=== PATIENT | female | born 1945 | race Caucasian/White ===

== ENCOUNTER → 2017-05-28 11:25 | Outpatient (CLI) | payer MEDICARE, OTHER, SELFPAY ==
[2017-05-28 14:54] LABS: Absolute Lymphocyte Count 2.18 X10^3/ul (0.83-4.51); Absolute Neutrophil Count 3.1 X10^3/uL (2.0-7.7); Basophil# 0.02 X10^3/uL; Basophil% 0.3 % (0-1); Eosinophil# 0.17 X10^3/uL; Eosinophils% 2.8 % (0-5); Hematocrit 42.4 % (37-47); Hemoglobin 14.2 g/dl (12.0-15.0); Lymphocyte # 2.18 X10^3/ul (4.0); Lymphocyte % 35.7 % (19-41); Mean Corp Hgb Conc 33.5 g/gl (32-36); Mean Corpuscular Hgb 28.3 pg (27.0-32.0); Mean Corpuscular Volume 84.5 fL (81-99); Mean Platelet Vol. 9.8 fl (6.2-12.0); Monocyte# 0.62 X10^3/uL; Monocyte% 10.1 % (0-10); Neutrophil % 50.8 % (47-70); Platelet Count 243 K/mm3 (150-450); RBC Distribution Width CV 12.5 % (11.6-14.6); RBC Distribution Width SD 38.2 fl (35.1-43.9); Red Blood Count 5.02 M/mm3 (4.2-5.4); White Blood Count 6.1 K/mm3 (4.4-11.0)
[2017-05-28 14:57] LABS: POSITIVE COUNT NO; POSITIVE DIFFERENTIAL NO; POSITIVE MORPHOLOGY NO
[2017-05-28 15:01] LABS: ALB/GLOB Ratio 0.9 RATIO (0.9-2.4); AST(SGOT) 15 U/L (15-37); Alanine Aminotransfer ALT/SGPT 29 U/L (13-56); Albumin, Serum 3.3 g/dL (3.2-5.0); Alkaline Phosphatase 54 U/L (45-117); Anion Gap 7 (5-15); BUN 13 mg/dL (7-18); BUN/Creat Ratio 16.7 RATIO (10-20); Calcium,Total 8.9 mg/dL (8.5-10.1); Chloride 109 mmol/L (98-107); Creatinine, Serum 0.78 mg/dL (0.55-1.02); EST Glomerular Filtration Rate 78 mL/min (>60); Est Glom Filt Rate - Afr Amer 94 mL/min (>60); Globulin 3.6 g/dL (2.2-4.2); Glucose 203 mg/dL (74-106); Potassium 4.1 mmol/L (3.5-5.1); Protein, Total 6.9 g/dL (6.4-8.2); Sodium Level 141 mmol/L (136-145); T4 Free Direct 1.23 ng/dL (0.76-1.46); Thyroid Stim Hormone (TSH) 1.73 uIU/mL (0.358-3.74)
[2017-05-29 08:59] LABS: Vitamin B12 426 pg/mL (211-911); Vitamin D,25 Hydroxy 23.4 ng/mL (19.95-100.01)
== END ==
PROVIDERS: Family Provider Family Medicine; PCP Family Medicine; Visit Provider Family Medicine
DX: E11.65 Type 2 diabetes mellitus with hyperglycemia (principal); I10 Essential (primary) hypertension; E55.9 Vitamin D deficiency, unspecified; R53.83 Other fatigue; L65.9 Nonscarring hair loss, unspecified
CPT/HCPCS: 36415; 80053; 82306; 82607; 84439; 84443; 85025

== ENCOUNTER → 2018-01-14 11:07 | Outpatient (CLI) | payer MEDICARE, OTHER, SELFPAY ==
--- NOTE | 2018-01-14 11:10 | RAD_ITS ---
STUDY: X-RAY - LUMBAR SPINE REASON FOR EXAM: Female, 72 years old. Lower back pain. TECHNIQUE: 5 view(s) of the lumbar spine were obtained. COMPARISON: None FINDINGS: Normal lumbar lordosis. There is a minimal levoscoliosis with convexity at L4-5. There is retrolisthesis of L2 on L3 of 3 mm. The alignment is otherwise preserved. There is multilevel endplate spondylosis of the lumbar vertebrae. There is multi-level degenerative disc disease with multi-level disc space narrowing. There is no evidence of acute fracture or loss of vertebral axial height. There is no demonstrated spondylolysis of the pars interarticulares. There is atherosclerotic calcification of the abdominal aorta without a demonstrated aneurysm. Cholecystectomy clips are seen in the right upper quadrant. RAD/L/S Spine Min 4 Views IMPRESSION: Degenerative changes of the lumbar spine. Electronically Signed: Artemio Ruiz DO at 17:14 EDT Tel [phone], Service support ,
== END ==
PROVIDERS: Family Provider Family Medicine; PCP Family Medicine; Referring Provider Family Medicine; Visit Provider Family Medicine
DX: M47.896 Other spondylosis, lumbar region (principal); M51.36 Other intervertebral disc degeneration, lumbar region
CPT/HCPCS: 72110

== ENCOUNTER → 2018-06-04 09:33 | Outpatient (CLI) | payer MEDICARE, OTHER, SELFPAY ==
--- NOTE | 2018-06-04 09:40 | RAD_ITS ---
STUDY: X-RAY - PELVIS AND RIGHT HIP REASON FOR EXAM: Female, 73 years old. Right posterior hip and lower back pain for years. Increasing pain with radiation down the right leg. TECHNIQUE: 3 views of the pelvis and hip. COMPARISON: None. FINDINGS: There is a non-specific bowel gas pattern. Normal visualized soft tissue structures. There are multiple calcified phleboliths. There is narrowing with cortical sclerosis and osteophyte formation of the sacroiliac joint consistent with degenerative osteoarthritic changes. Normal iliac wings and visualized sacrum. Normal bilateral superior and inferior pubic rami. There are degenerative changes of the pubic symphysis with articular narrowing and sclerosis. Normal bilateral ischial tuberosities. Normal visualized right femoral head. There is osteoarthritic spur formation of the right acetabular rim. There is mild articular joint space narrowing of the hip. RAD/HIP, UNI W/ Pelvis 2-3 Views IMPRESSION: Degenerative changes of the right hip and pelvis. There is no fracture or dislocation. Electronically Signed: Artemio Ruiz DO at 19:12 EST Tel [phone], Service support ,
[2018-06-04 12:59] LABS: Absolute Lymphocyte Count 1.97 X10^3/ul (0.83-4.51); Basophil# 0.06 X10^3/uL; Basophil% 0.9 % (0-1); Eosinophil# 0.19 X10^3/uL; Eosinophils% 2.7 % (0-5); Hemoglobin 15.5 g/dl (12.0-15.0); Lymphocyte # 1.97 X10^3/ul (4.0); Lymphocyte % 28.2 % (19-41); Mean Corp Hgb Conc 33.7 g/gl (32-36); Mean Corpuscular Hgb 28.5 pg (27.0-32.0); Mean Corpuscular Volume 84.7 fL (81-99); Monocyte# 0.75 X10^3/uL; Monocyte% 10.7 % (0-10); Neutrophil % 57.2 % (47-70); Platelet Count 267 K/mm3 (150-450); RBC Distribution Width CV 12.6 % (11.6-14.6); RBC Distribution Width SD 38.4 fl (35.1-43.9); Red Blood Count 5.43 M/mm3 (4.2-5.4)
[2018-06-04 13:02] LABS: POSITIVE COUNT NO; POSITIVE DIFFERENTIAL NO; POSITIVE MORPHOLOGY NO
[2018-06-04 13:07] LABS: Vitamin D,25 Hydroxy 45.8 ng/mL (29.95-100.01)
[2018-06-04 13:12] LABS: ALB/GLOB Ratio 1.1 RATIO (0.9-2.4); Albumin, Serum 3.7 g/dL (3.2-5.0); BUN 22 mg/dL (7-18); BUN/Creat Ratio 23.4 RATIO (10-20); Creatinine, Serum 0.94 mg/dL (0.55-1.02); EST Glomerular Filtration Rate 62 mL/min (>60); Est Glom Filt Rate - Afr Amer 75 mL/min (>60); Globulin 3.5 g/dL (2.2-4.2); Glucose 288 mg/dL (74-106); Protein, Total 7.2 g/dL (6.4-8.2)
[2018-06-04 13:13] LABS: AST(SGOT) 12 U/L (15-37); Alanine Aminotransfer ALT/SGPT 24 U/L (13-56); Alkaline Phosphatase 60 U/L (45-117); Anion Gap 13 (5-15); Calcium,Total 9.5 mg/dL (8.5-10.1); Chloride 107 mmol/L (98-107); Potassium 4.3 mmol/L (3.5-5.1); Sodium Level 140 mmol/L (136-145); T4 Free Direct 1.17 ng/dL (0.76-1.46); Thyroid Stim Hormone (TSH) 2.17 uIU/mL (0.358-3.74)
== END ==
PROVIDERS: Family Provider Family Medicine; PCP Family Medicine; Referring Provider Family Medicine; Visit Provider Family Medicine
DX: E11.65 Type 2 diabetes mellitus with hyperglycemia (principal); E78.5 Hyperlipidemia, unspecified; E55.9 Vitamin D deficiency, unspecified; M16.11 Unilateral primary osteoarthritis, right hip
CPT/HCPCS: 36415; 73502; 80053; 82306; 84439; 84443; 85025

== ENCOUNTER → 2018-06-30 15:59 | Outpatient (CLI) | payer MEDICARE, OTHER, SELFPAY ==
--- NOTE | 2018-06-30 16:02 | RAD_ITS ---
STUDY: X-RAY - LUMBAR SPINE REASON FOR EXAM: Female, 73 years old. Chronic back pain. TECHNIQUE: 5 view(s) of the lumbar spine were obtained including oblique views. COMPARISON: Comparison is made with prior study dated January 14, 2018. FINDINGS: Normal lumbar lordosis. There is a mild levoscoliosis of the lumbar spine. Mild retrolisthesis of L2 on L3. This measures 3 mm. This is unchanged. There is multilevel endplate spondylosis of the lumbar vertebrae. There is multi-level degenerative disc disease with multi-level disc space narrowing. There is atherosclerotic calcification of the abdominal aorta without a demonstrated aneurysm. RAD/L/S Spine Min 4 Views IMPRESSION: Degenerative changes of the spine, as detailed above. Stable retrolisthesis of L2 on L3. Electronically Signed: Alejo Gilliam, at 9:53 EDT , Service support ,
== END ==
PROVIDERS: Family Provider Family Medicine; PCP Family Medicine; Referring Provider Anesthesiology Pain Medicine; Visit Provider Anesthesiology Pain Medicine
DX: M54.5 Low back pain (principal); M25.559 Pain in unspecified hip
CPT/HCPCS: 72110

== ENCOUNTER 2020-03-25 13:46 | Emergency (ER) | payer MEDICARE, OTHER, SELFPAY ==
[2020-03-25 13:49] VITALS: BP 152/75; PULSE 77; RESP 18; TEMP 36.1; O2SAT 98; BMI 28.3
--- NOTE | 2020-03-25 15:05 | RAD_ITS ---
STUDY: X-RAY - LEFT HAND, ATTENTION THIRD FINGER REASON FOR EXAM: Female, 74 years old. Sewing needle stuck in left middle finger TECHNIQUE: 3 view(s) of the finger were obtained. COMPARISON: None. FINDINGS: Normal metacarpal head. Normal metacarpophalangeal joint. Normal proximal phalanx. Normal middle phalanx. Normal distal phalanx. Normal proximal interphalangeal joint. Normal distal interphalangeal joint. There is a 4 mm metallic needle in the soft tissues overlying the tuft of the distal phalanx of the third digit along the radial aspect. RAD/Finger(s) Min 2 Views IMPRESSION: 4 mm metallic needle in the soft tissues overlying the distal phalanx of the third digit along the radial aspect of the distal phalanx. Electronically Signed: Alejo Gilliam, at 15:24 EST , Service support ,
--- NOTE | 2020-03-25 15:28 | ED.VISSUMM ---
- ER Visit Summary Date of Service: 03/25/20 Chief Complaint: Foreign body tip of left long finger History of Present Illness: The patient is a 74 F that is right-hand dominant. She is diabetic. Patient was sewing today. The needle went into her right long finger through the dorsum and through the nailbed and then broke off inside the distal tip of her left long finger. This occurred around 130. She denies any other injuries. Physical Examination: Older female no acute distress vital signs stable afebrile. Lungs are clear. Heart regular rhythm. Abdomen soft. Left hand she has full range of motion all digits of the left hand. There is a puncture wound in the dorsal aspect of her left long finger nail with a foreign body underneath the skin that is tenting the skin. She has normal touch sensation to the hand. Test Results: X-ray left hand 3 views shows a metallic foreign body does not like the end of the needle embedded in the soft tissue of her left long finger. Interpreted by myself. Radiologist also read the film and agrees. Emergency Department Course and Treatment: Digital nerve block. Incision and removal of the foreign body. Patient tolerated procedure well. Was able to push the needle through the entrance wound and pull it out from the dorsum side of the nail. Treatment Plan: Keflex 4 times daily. Return of any signs of infection. Follow-up with her doctor to make sure is getting better. Disposition: Discharged Impression: Left long finger metallic foreign body removed by ER History of diabetes Digital nerve block by ER This note was generated with [employer] dictation software. It may contain incorrect words, spelling, and punctuation that were not noted in review of the chart prior to signing ED Disposition - Plan for ED Patient: Referrals: Neo Lopez MD [Primary Care Provider] -
[2020-03-25] MEDS: Lidocaine 1% (20 ml mdv) 20 ML Vial 10 ML INFILT (15:39)
[2020-03-25] MEDS: Diphth,Pertuss(Acell),Tet Vac 0.5 ML Vial IM (15:57)
--- NOTE | 2020-03-25 17:05 | RAD_ITS ---
STUDY: X-RAY - LEFT HAND, ATTENTION THIRD FINGER REASON FOR EXAM: Female, 74 years old. removal of needle from left middle finger, 2 mini c-arm images TECHNIQUE: 2 view(s) of the finger were obtained. Fluoroscopy time 0.7 seconds. COMPARISON: Prior finger radiographs of 03/25/2020 FINDINGS: Fluoroscopy demonstrates complete removal of the needle fragment from the tip of the third finger without residual foreign body or underlying fracture deformity. RAD/Finger(s) Min 2 Views IMPRESSION: Needle fragment completely removed. Electronically Signed: Ailyn Valenzuela MD at 18:30 EST , Service support ,
--- NOTE | 2020-03-25 17:38 | ED.DEP ---
ED Disposition - Plan for ED Patient: Disposition: Home or Assisted Living Instructions: ED Splinter Removal Prescriptions: Cephalexin [Keflex] 750 mg PO BID #10 cap Prescription Printed Referrals: Neo Lopez MD [Primary Care Provider] - 1 Week if not improving Additional Instructions: Clean the wound daily with soap and water and apply antibiotic ointment. Keep clean and covered. Keflex twice a day for the next 5 days. Return if any swelling, fever, red streaks or pus. These to be signs of the wound got infected.
[2020-03-25 18:06] VITALS: PULSE 70; RESP 16; O2SAT 99
== END 2020-03-25 18:15 | disposition home or self-care (01) ==
PROVIDERS: Emergency Provider Emergency Medicine; PCP Family Medicine
DX: S60.453A Superficial foreign body of left middle finger, initial encounter (principal); W45.8XXA Other foreign body or object entering through skin, initial encounter; Y93.D2 Activity, sewing; Y92.9 Unspecified place or not applicable; Y99.9 Unspecified external cause status; E11.9 Type 2 diabetes mellitus without complications; Z79.84 Long term (current) use of oral hypoglycemic drugs
CPT/HCPCS: 10120; 73140; 76000; 90471; 90715; 99283

== ENCOUNTER → 2020-04-25 11:22 | Outpatient (CLI) | payer MEDICARE, OTHER, SELFPAY ==
[2020-04-25 15:40] LABS: Absolute Lymphocyte Count 1.79 X10^3/uL (0.83-4.51); Absolute Neutrophil Count 3.5 X10^3/uL (2.0-7.7); Basophil# 0.06 X10^3/uL; Eosinophil# 0.13 X10^3/uL; Eosinophils% 2.1 % (0-5); Hematocrit 41.9 % (37-47); Hemoglobin 14.5 g/dL (12.0-15.0); Lymphocyte # 1.79 X10^3/ul (4.0); Lymphocyte % 29.3 % (19-41); Mean Corp Hgb Conc 34.6 g/dL (32-36); Mean Corpuscular Hgb 30.7 pg (27.0-32.0); Mean Corpuscular Volume 88.8 fL (81-99); Mean Platelet Vol. 10.5 fl (6.2-12.0); Monocyte# 0.59 X10^3/uL; Monocyte% 9.7 % (0-10); NRBC Flagged by Analyzer 0 % (0-5); Neutrophil # 3.52 X10^3/uL (2.7-7.7); Neutrophil % 57.6 % (47-70); Platelet Count 213 K/mm3 (150-450); RBC Distribution Width CV 12.8 % (11.6-14.6); RBC Distribution Width SD 39.9 fl (35.1-43.9); Red Blood Count 4.72 M/mm3 (4.2-5.4); White Blood Count 6.1 K/mm3 (4.4-11.0)
[2020-04-25 15:59] LABS: Vitamin B12 455 pg/mL (211-911); Vitamin D,25 Hydroxy 49.7 ng/mL
[2020-04-25 16:00] LABS: ALB/GLOB Ratio 1.1 RATIO (0.9-2.4); AST(SGOT) 17 U/L (15-37); Alanine Aminotransfer ALT/SGPT 24 U/L (13-56); Albumin, Serum 3.5 g/dL (3.2-5.0); Alkaline Phosphatase 59 U/L (45-117); Anion Gap 10 (5-15); BUN 18 mg/dL (7-18); BUN/Creat Ratio 22.2 RATIO (10-20); Chloride 106 mmol/L (98-107); Creatinine, Serum 0.81 mg/dL (0.55-1.02); EST Glomerular Filtration Rate 73 mL/min (>60); Est Glom Filt Rate - Afr Amer 89 mL/min (>60); Globulin 3.1 g/dL (2.2-4.2); Glucose 212 mg/dL (74-106); Potassium 4.1 mmol/L (3.5-5.1); Protein, Total 6.6 g/dL (6.4-8.2); Sodium Level 138 mmol/L (136-145); T4 Free Direct 1.28 ng/dL (0.76-1.46); Thyroid Stim Hormone (TSH) 1.64 uIU/mL (0.358-3.74)
== END ==
PROVIDERS: PCP Family Medicine; Visit Provider Family Medicine
DX: E11.65 Type 2 diabetes mellitus with hyperglycemia (principal); I10 Essential (primary) hypertension; E53.8 Deficiency of other specified B group vitamins; E55.9 Vitamin D deficiency, unspecified
CPT/HCPCS: 36415; 80053; 82306; 82607; 84439; 84443; 85025

== ENCOUNTER → 2022-11-13 | Outpatient (CLI) | payer MEDICARE, OTHER, SELFPAY ==
[2022-11-13 16:19] LABS: Absolute Lymphocyte Count 1.55 X10^3/uL (0.83-4.51); Absolute Neutrophil Count 3.7 X10^3/uL (2.0-7.7); Basophil# 0.04 X10^3/uL; Basophil% 0.7 % (0-1); Eosinophil# 0.13 X10^3/uL; Eosinophils% 2.2 % (0-5); Hematocrit 43.2 % (37-47); Hemoglobin 13.5 g/dL (12.0-15.0); Lymphocyte # 1.55 X10^3/ul (0.83-4.51); Mean Corp Hgb Conc 31.3 g/dL (32-36); Mean Corpuscular Hgb 27.8 pg (27.0-32.0); Mean Corpuscular Volume 89.1 fL (81-99); Mean Platelet Vol. 10.4 fl (6.2-12.0); Monocyte# 0.56 X10^3/uL; Monocyte% 9.4 % (0-10); NRBC Flagged by Analyzer 0 % (0-5); Neutrophil # 3.66 X10^3/uL (2.7-7.7); Neutrophil % 61.4 % (47-70); Platelet Count 214 K/mm3 (150-450); RBC Distribution Width CV 12.8 % (11.6-14.6); RBC Distribution Width SD 42.1 fl (35.1-43.9); Red Blood Count 4.85 M/mm3 (4.2-5.4)
[2022-11-13 16:28] LABS: Vitamin B12 621 pg/mL (211-911); Vitamin D,25 Hydroxy 70.1 ng/mL
[2022-11-13 16:32] LABS: ALB/GLOB Ratio 0.9 RATIO (0.9-2.4); AST(SGOT) 19 U/L (15-37); Alanine Aminotransfer ALT/SGPT 26 U/L (13-56); Albumin, Serum 3.3 g/dL (3.2-5.0); Alkaline Phosphatase 63 U/L (45-117); Anion Gap 3 (5-15); BUN 16 mg/dL (7-18); BUN/Creat Ratio 18.7 RATIO (10-20); Calcium,Total 9.8 mg/dL (8.5-10.1); Chloride 110 mmol/L (98-107); Cholesterol 212 mg/dL (200); Creatinine, Serum 0.86 mg/dL (0.55-1.02); EST Glomerular Filtration Rate 68 mL/min (>60); Est Glom Filt Rate - Afr Amer 83 mL/min (>60); Ferritin 349 ng/mL (8-252); Globulin 3.5 g/dL (2.2-4.2); Glucose 201 mg/dL (74-106); High Density Lipoprotein 48 mg/dL; Potassium 4.7 mmol/L (3.5-5.1); Protein, Total 6.8 g/dL (6.4-8.2); Sodium Level 141 mmol/L (136-145); Triglycerides 191 mg/dL; Very Low Density Lipoprotein 38 mg/dL (5-40)
== END | disposition home or self-care (01) ==
PROVIDERS: PCP Family Medicine; Referring Provider Family Medicine; Visit Provider Family Medicine
DX: E11.9 Type 2 diabetes mellitus without complications (principal); E78.5 Hyperlipidemia, unspecified; E55.9 Vitamin D deficiency, unspecified; D64.9 Anemia, unspecified; R53.83 Other fatigue
CPT/HCPCS: 36415; 80053; 80061; 82306; 82607; 82728; 84443; 85025

== ENCOUNTER → 2022-11-15 | Outpatient (CLI) | payer MEDICARE, OTHER, SELFPAY ==
[2022-11-15 12:18] LABS: Color, Urine Yellow (Yellow); Glucose, Dipstick Normal (Normal); Ketone-Dipstick Negative (Negative); Leukocyte Esterase-Dipstick Negative /ul (Negative); Nitrite-Dipstick Negative (Negative); Occult Blood-Urine Negative /ul (Negative); Protein-Dipstick Negative (Negative); Specific Gravity, Urine 1.015 (1.002-1.030); Urine Bilirubin Dipstick Negative (Negative); Urine Clarity Clear (Clear); Urine Urobilinogen Normal (Normal)
[2022-11-15 12:35] LABS: Microalbumin:Creatinine Ratio 8.9 mg/g CRE (<30 mg/g CRE)
== END | disposition home or self-care (01) ==
LOC: LABSPEC 10:09
PROVIDERS: PCP Family Medicine; Referring Provider Family Medicine; Visit Provider Family Medicine
DX: E11.9 Type 2 diabetes mellitus without complications (principal); E78.5 Hyperlipidemia, unspecified; E55.9 Vitamin D deficiency, unspecified; D64.9 Anemia, unspecified; R53.83 Other fatigue
CPT/HCPCS: 81002; 82043; 82570

== ENCOUNTER → 2023-01-07 | Outpatient (CLI) | payer MEDICARE, OTHER, SELFPAY ==
--- NOTE | 2023-01-07 12:33 | BI_ITS ---
MAMMOGRAPHY - BILATERAL SCREENING REASON FOR EXAM: Female, 77 years old. Routine annual screening examination. PERTINENT HISTORY: Non-contributory. History of prior right stereotactic breast biopsy. TECHNIQUE: Digital bilateral breast joel (3D mammographic acquisition) in the CC and MLO projections. 2-D mediolateral oblique (MLO) and craniocaudad (CC) views of both breasts were obtained. CAD: Full Field Digital Mammography with Computer Added Detection was performed. COMPARISON: Comparison is made with prior examination dated December 10, 2013 and December 09, 2012. FINDINGS: Breast Composition: There are scattered areas of fibroglandular density. There are no dominant masses or suspicious calcifications. Stable asymmetry of breast tissue or more breast tissue is seen in the right breast as compared to the left side. A tissue clip marker is seen within the nodule in the upper lateral aspect of the right breast. The nodular density has decreased in size and presently measures 9.1 mm. No other significant abnormalities are identified. There has been no significant change since the prior study. BI/SCRN MAMM (CAD)W/JOEL BILAT IMPRESSION: Stable bilateral screening mammogram. Yearly follow-up mammogram recommended. (A) ASSESSMENT CATEGORY: BIRADS Category 2: Benign. A letter regarding these results will be sent to the patient by the facility within 30 days. Approximately 10% of breast cancers are not detected by mammography. A normal mammogram should not delay biopsy of a clinically suspicious abnormality. [id number] Electronically Signed: Alejo Gilliam MD at 13:26 EDT ,
== END | disposition home or self-care (01) ==
LOC: OPBI 12:31
PROVIDERS: PCP Family Medicine; Referring Provider Family Medicine; Visit Provider Family Medicine
DX: Z12.31 Encounter for screening mammogram for malignant neoplasm of breast (principal)
CPT/HCPCS: 77063; 77067

== ENCOUNTER 2023-01-11 13:34 | Emergency (ER) | payer MEDICARE, OTHER, SELFPAY ==
[2023-01-11 13:37] VITALS: BP 151/100; PULSE 103; RESP 22; TEMP 36.9; O2SAT 99; BMI 26.1
--- NOTE | 2023-01-11 14:46 | EDS_ITS ---
HPI History of Present Illness Chief Complaint: Other, Pain/Inj Detail of Chief Complaint: Chronic right flank pain after having shingles at the end of September. Informant: patient and family Onset/Context/Timing Onset: Month(s) Current Severity: Moderate Maximum Severity: Moderate Narrative Narrative: 77-year-old female history of chronic back pain, diabetes and had shingles at the end of September. The rash is improving is not completely resolved. She was placed on gabapentin has had 2 different prescriptions of it and she said does not give her any relief. She was also placed on tramadol which is makes her sleepy but does not control her pain. She was written for Vicodin and said it did not help her pain either. States she cannot take anything with Tylenol in it because she had a reaction in the past which reportedly caused her liver enzymes to rise. EKG is normal Prior similar symptoms: Yes Recent Illness/Hospitalization: No PFSH PFSH Medical History Chronic back pain Diabetes Seasonal allergies Home Medications glimepiride 4 mg tablet 4 mg PO BID 03/25/20 [History Last Taken Unknown] lisinopril 5 mg tablet 5 mg PO DAILY 03/25/20 [History Last Taken Unknown] cholecalciferol (vitamin D3) 125 mcg (5,000 unit) tablet (Vitamin D3) 125 mcg PO DAILY 01/11/23 [History Last Taken Unknown] insulin glargine 100 unit/mL (3 mL) subcutaneous pen (Basaglar KwikPen U-100 Insulin) 10 unit subcut QHS 01/11/23 [History Last Taken Unknown] oxycodone 10 mg tablet,crush resistant,extended release 12 hr (OxyContin) 10 mg PO BID 10 days #20 tabs 01/11/23 [Rx Last Taken Unknown] tramadol 50 mg tablet 50 mg PO Q12H 01/11/23 [History Last Taken Unknown] Allergy/AdvReac Type Severity Reaction Status Date / Time acetaminophen [From Tylenol] Allergy Swelling Verified 01/11/23 13:36 Family History no significant family his Surgical History H/O: hysterectomy History of cholecystectomy Social History household members: family housing: house Smoking Status: Never smoker ROS ROS ED ROS Narrative Denies recent illness. Review of Systems ROS Unobtainable: Denies due to encephalopathy Constitutional Constitutional ED: Denies chills or fever(s) Eyes Eyes: Denies blurry vision ENT ENT ED: Denies ear pain Cardiovascular Cardiovascular: Denies chest pain Respiratory/Chest Respiratory/Chest: Denies cough or dyspnea Gastrointestinal Gastrointestinal: Denies abdominal pain Genitourinary Genitourinary ED: Denies dysuria or hematuria Musculoskeletal Musculoskeletal: Reports back pain; Denies arthralgias Integumentary Denies abscess or Abrasions Neurologic Neurologic: Denies headache(s) Psychiatric Psychiatric: Denies anxiety Endocrine Endocrinology: Denies cold intolerance Hematologic/Lymphatic Hematologic/Lymphatic: Denies easy bleeding or easy bruising Allergic/Immunologic Allergic/Immunologic ED: Denies mouth swelling or tongue swelling EXAM Physical Exam Narrative Exam Narrative: Well-appearing 77-year-old female. Vital signs stable afebrile. HEENT exam unremarkable. Moist mucous members. Neck nontender no JVD. No lymphadenopathy. Lungs clear to auscultation bilateral. Heart regular rhythm rate about 100 no murmur. Chest wall nontender. Abdomen soft nontender. Her right flank there is resolving shingles rash. There may be some chronic scarring. There is no trauma or bruising. No secondary cellulitis. Back there is no specific tenderness. She is moving all 4 extremities. Nontender without edema. No deformity. Neurologically she is awake and alert without focal motor deficits. Const Vital Signs: 01/11/23 13:37 01/11/23 13:59 Temperature 98.4 F Temperature Source Temporal Pulse Rate 103 H Respiratory Rate 22 H Respiratory Effort Normal Blood Pressure 151/100 H Blood Pressure Mean 117 Pulse Ox 99 Oxygen Delivery Method Room Air Positive well nourished and well developed; Negative for cachectic, contractures or unkempt General Appearance ED: well developed and NAD; Negative for unkempt, cachectic or contractures Nutritional Appearance: Negative for cachectic HEENT atraumatic; Negative for trauma or tenderness Eyes PERRL and EOMs intact bilaterally General Eye ED: Negative for other Neck full ROM General: Negative for tenderness Chest Wall inspection of chest normal and palpation of chest normal Breast/Axilla Inspection: Negative for other Resp normal respiratory effort and clear to auscultation bilaterally Effort and Inspection: Negative for pain with movement Auscultation: Negative for rales, rhonchi or wheezes Cardio regular rhythm, S1 normal heart sound, S2 normal heart sound and no murmurs Jugular Venous Distention: Negative for other Palpation: Negative for palpable S3 Rate: regular rate; Negative for bradycardia or tachycardic Rhythm: Negative for abnormal rhythm GI normal to inspection, nondistended, normoactive bowel sounds, non-tender, non- distended and no masses Auscultation: normoactive bowel sounds Palpation: soft; Negative for tender or guarding Back/Spine normal to inspection and no thoracic nor lumbar tenderness Back/Spine Narrative: Right flank has a resolving shingles rash. General Back: Negative for CVA tenderness Thoracic Spine / Upper Back: Negative for thoracic spinal tenderness Lumbar Spine / Lower Back: Negative for straight leg raise negative bilaterally Extremity normal to inspection and full ROM General Extremety ED: Negative for deformity, edema or tenderness General Extremity: Negative for deformity or edema Neuro oriented x3, CN's II-XII intact bilaterally, moves all extremities and no focal motor deficits Sensorium / Orientation: alert, oriented to person, oriented to place and oriented to time Motor Exam: strength 5/5 throughout Psych mental status grossly normal and thought process normal Appearance: Negative for unkempt Attitude: No agitated Mood & Affect: Negative for depressed, anxious or tearful Skin No no rashes or lesions noted, no wounds, skin turgor normal and no jaundice Skin Narrative: Resolving shingles rash with some residual scarring on the right flank. General Skin Exam: Negative for other Rashes: rashes noted MDM MDM MDM Narrative Medical decision making narrative: 77-year-old with chronic neuropathic pain in her right flank from shingles at the end of September. She has been on multiple different meds without any significant relief. Gabapentin did not help her. Vicodin has not helped her. Tramadol made her sleepy did not help her pain. She will be given IM morphine here. Patient tells me she cannot use Tylenol due to reaction in the past. She will be placed on OxyContin for pain and follow-up with primary care physician. Dr. Echeverria for pain management has appointment to see him next week also. Discharge Plan Triage Chief Complaint: Other, Pain/Inj ED Provider: Jerson Astorga Dx/Rx/DC Orders Clinical Impression: History of shingles, Neuropathic pain, History of diabetes mellitus Instructions: ED Chronic Pain Prescriptions: New oxycodone [OxyContin] 10 mg tablet,oral only,ext.rel.12 hr 10 mg PO BID 10 Days Qty: 20 0RF No Action glimepiride 4 MG tablet 4 mg PO BID lisinopril 5 MG tablet 5 mg PO DAILY tramadol 50 mg tablet 50 mg PO Q12H insulin glargine [Basaglar KwikPen U-100 Insulin] 100 unit/mL (3 mL) insulin pen 10 unit SUBCUT QHS cholecalciferol (vitamin D3) [Vitamin D3] 125 mcg (5,000 unit) tablet 125 mcg PO DAILY Primary Care Provider: Jonathan Pascal Referrals: Jonathan Pascal, DO [Primary Care Provider] - 3-5 Days if not improving Activity Restrictions/Additional Instructions: Stop the gabapentin since it has not been working with for you. OxyContin a strong painkiller 1 pill up to twice a day. Sure you are drinking plenty of water, fruits, vegetables, fiber and stool softener to prevent constipation from the pain medication. Do not drink alcohol or drive while using the pain medication. Follow-up with your doctor next week to ensure you are improving. Disposition Disposition: Home, Self Care
[2023-01-11] MEDS: morphine 8 MG/ML Syringe IM (15:25)
== END 2023-01-11 16:55 | disposition home or self-care (01) ==
PROVIDERS: Emergency Provider Emergency Medicine; PCP Family Medicine; Visit Provider Emergency Medicine
DX: E11.40 Type 2 diabetes mellitus with diabetic neuropathy, unspecified (principal); Z79.4 Long term (current) use of insulin; G89.29 Other chronic pain; M54.9 Dorsalgia, unspecified; Z79.84 Long term (current) use of oral hypoglycemic drugs; Z79.899 Other long term (current) drug therapy
CPT/HCPCS: 96372; 99282

== ENCOUNTER → 2023-11-19 | Outpatient (CLI) | payer MEDICARE, OTHER, SELFPAY ==
[2023-11-19 15:18] LABS: Absolute Lymphocyte Count 2.13 X10^3/uL (0.83-4.51); Absolute Neutrophil Count 4.5 X10^3/uL (2.0-7.7); Basophil# 0.07 X10^3/uL; Basophil% 0.9 % (0-1); Eosinophils% 2.6 % (0-5); Hematocrit 40.2 % (37-47); Hemoglobin 13.1 g/dL (12.0-15.0); Lymphocyte # 2.13 X10^3/ul (0.83-4.51); Lymphocyte % 27.8 % (19-41); Mean Corp Hgb Conc 32.6 g/dL (32-36); Mean Corpuscular Hgb 27.5 pg (27.0-32.0); Mean Corpuscular Volume 84.3 fL (81-99); Mean Platelet Vol. 9.9 fl (6.2-12.0); Monocyte# 0.77 X10^3/uL; NRBC Flagged by Analyzer 0 % (0-5); Neutrophil # 4.48 X10^3/uL (2.7-7.7); Neutrophil % 58.4 % (47-70); Platelet Count 267 K/mm3 (150-450); RBC Distribution Width CV 12.8 % (11.6-14.6); RBC Distribution Width SD 39.5 fl (35.1-43.9); Red Blood Count 4.77 M/mm3 (4.2-5.4); White Blood Count 7.7 K/mm3 (4.4-11.0)
[2023-11-19 15:51] LABS: Hemoglobin A1c 7.6 % (3.8-5.6)
[2023-11-19 17:59] LABS: Vitamin D,25 Hydroxy 78.4 ng/mL
[2023-11-19 18:04] LABS: ALB/GLOB Ratio 1.1 RATIO (0.9-2.4); AST(SGOT) 16 U/L (15-37); Alanine Aminotransfer ALT/SGPT 25 U/L (13-56); Albumin, Serum 3.6 g/dL (3.2-5.0); Alkaline Phosphatase 56 U/L (45-117); Anion Gap 9 (5-15); BUN 25 mg/dL (7-18); BUN/Creat Ratio 24.3 RATIO (10-20); Calcium,Total 10.1 mg/dL (8.5-10.1); Chloride 106 mmol/L (98-107); Cholesterol 210 mg/dL (200); Creatinine, Serum 1.03 mg/dL (0.55-1.02); EST Glomerular Filtration Rate 55 mL/min (>60); Est Glom Filt Rate - Afr Amer 67 mL/min (>60); Globulin 3.3 g/dL (2.2-4.2); Glucose 150 mg/dL (74-106); High Density Lipoprotein 49 mg/dL; Potassium 4.3 mmol/L (3.5-5.1); Protein, Total 6.9 g/dL (6.4-8.2); Sodium Level 138 mmol/L (136-145); Triglycerides 173 mg/dL; Very Low Density Lipoprotein 35 mg/dL (5-40)
== END | disposition home or self-care (01) ==
LOC: BFHLAB 13:50
PROVIDERS: PCP Family Medicine; Referring Provider Family Medicine; Visit Provider Family Medicine
DX: E11.69 Type 2 diabetes mellitus with other specified complication (principal); E78.5 Hyperlipidemia, unspecified; E55.9 Vitamin D deficiency, unspecified
CPT/HCPCS: 36415; 80053; 80061; 82306; 83036; 85025

== ENCOUNTER 2023-11-21 10:32 | Outpatient (CLI) | payer MEDICARE, OTHER, SELFPAY ==
[2023-11-21 13:01] LABS: Microalbumin,Random Urine < 5.0 mg/L (NO RANGE EST.)
== END 2023-11-21 23:59 | disposition home or self-care (01) ==
LOC: LABSPEC 10:39
PROVIDERS: PCP Family Medicine; Referring Provider Family Medicine; Visit Provider Family Medicine
DX: E11.69 Type 2 diabetes mellitus with other specified complication (principal); E78.5 Hyperlipidemia, unspecified; E55.9 Vitamin D deficiency, unspecified
CPT/HCPCS: 82043; 82570

== ENCOUNTER → 2024-11-05 | Outpatient (CLI) | payer MEDICARE, OTHER, SELFPAY ==
--- NOTE | 2024-11-05 10:10 | RAD_ITS ---
EXAM: XR Left Knee Complete, 4 or More Views CLINICAL INDICATION: OA LEFT KNEE TECHNIQUE: Four or more views of the left knee. COMPARISON: No relevant prior studies available. FINDINGS: BONES/JOINTS: Mild tricompartmental degenerative changes. No acute fracture. No dislocation. SOFT TISSUES: Soft tissue swelling. RAD/Knee 4 or More Views IMPRESSION: Degenerative changes as above. Reading [facility]
== END | disposition home or self-care (01) ==
LOC: MTRAD 10:08
PROVIDERS: PCP Family Medicine; Referring Provider Anesthesiology Pain Medicine; Visit Provider Anesthesiology Pain Medicine
DX: M17.12 Unilateral primary osteoarthritis, left knee (principal)
CPT/HCPCS: 73564

== ENCOUNTER → 2024-12-17 | Outpatient (CLI) | payer MEDICARE, OTHER, SELFPAY ==
[2024-12-17 18:05] LABS: Creatinine, Urine (random) 93.20 mg/dL (28.00-217.00); Microalbumin,Random Urine 24.4 mg/L (<20 mg/L)
[2024-12-17 18:30] LABS: AST(SGOT) 19 U/L (<=31); Alanine Aminotransfer ALT/SGPT 13 U/L (<=34); Albumin, Serum 4.0 g/dL (3.4-4.8); Alkaline Phosphatase 59 U/L (35-104); Anion Gap 12 (5-15); BUN 20 mg/dL (4-19); BUN/Creat Ratio 22.2 RATIO (10-20); Calcium,Total 10.3 mg/dL (7.6-11.0); Carbon Dioxide 21.9 mmol/L (21.0-32.0); Chloride 106 mmol/L (98-108); Cholesterol 231 mg/dL (<=200); Globulin 2.7 g/dL (2.2-4.2); Glucose 169 mg/dL (70-99); Low Density Lipoprotein Calc. 125 mg/dL; Potassium 4.4 mmol/L (3.3-5.1); Triglycerides 257 mg/dL; Very Low Density Lipoprotein 51 mg/dL (5-40); Vitamin D,25 Hydroxy 84.3 ng/mL (30-100); cholesterol:hdl ratio screen 4.22
[2024-12-17 18:38] LABS: Hematocrit 39.5 % (37-47); Hemoglobin 13.3 g/dL (12.0-15.0); Immature Granulocytes Count 0.030 X10^3/uL (0.0-0.0); Mean Corp Hgb Conc 33.7 g/dL (32-36); Mean Corpuscular Volume 85.3 fL (81-99); Mean Platelet Vol. 10.1 fl (6.2-12.0); NRBC Flagged by Analyzer 0 % (0-5); Platelet Count 260 K/mm3 (150-450); RBC Distribution Width CV 12.9 % (11.6-14.6); RBC Distribution Width SD 39.4 fl (35.1-43.9); Red Blood Count 4.63 M/mm3 (4.2-5.4); White Blood Count 8.3 K/mm3 (4.4-11.0)
--- OUTSIDE RECORDS SUMMARY | 2024-12-17 19:43 | XMS RPT_ITS | CCD ---
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 Jonathan Pascal DO Primary Care Provider Alan ELE, Dr. Jaimes Attending Provider [phone] Alan LEE, Dr. Jaimes Referring Provider [phone] Jonathan Pascal Referring Unavailable Jonathan Pascal Primary Care Unavailable Jonathan Pascal Attending Unavailable Jonathan Pascal Referring Unavailable Jonathan Pascal Primary Care Unavailable Jonathan Pascal Attending Unavailable Jonathan Pascal Referring Unavailable Jonathan Pascal Primary Care Unavailable Jonathan Pascal Attending Unavailable Jonathan Pascal Primary Care Unavailable Theodore Phillips Attending Unavailable Theodore Phillips Referring Unavailable Allergies Allergy Classification Reported Allergen(s) Allergy Type Date of Onset Reaction(s) Facility (4 sources) Acetaminophen Drug Allergy 0 NEEDS FOLLOW-UP, Swelling [facility] Comment on above: liver swelling up (1 source) Acetaminophen Drug Allergy 3 [facility] Repository Medications Current Medications Medication Drug Class(es) Dates Sig (Normalized) Sig (Original) cholecalciferol 0.125 mg oral tablet (1 source) Vitamin D Start: 01-11-2023 take 1 tablet by mouth once daily Cholecalciferol (Vitamin D3) (Vitamin D3) 125 mcg (5,000 unit) tablet Active 125 ug PO DAILY January 11, 2023 12:00am glimepiride 4 mg oral tablet (4 sources) Sulfonylurea Start: 03-25-2020 take 1 tablet by mouth twice daily Glimepiride 4 MG tablet Active 4 mg PO TWICE A DAY March 25, 2020 1:00am 3 ml insulin glargine 100 unt/ml pen injector (1 source) Insulin Analog Start: 01-11-2023 inject 10 [IU] by subcutaneous injection at bedtime Insulin Glargine (Insulin Glargine 100 Unit/Ml (3 Ml) Subcutaneous Pen) 100 unit/mL (3 mL) insulin pen Active 10 U SC AT BEDTIME January 11, 2023 12:00am lisinopril 5 mg oral tablet (4 sources) Angiotensin Converting Enzyme Inhibitor Start: 03-25-2020 take 1 tablet by mouth once daily Lisinopril 5 MG tablet Active 5 mg PO DAILY March 25, 2020 1:00am abuse-deterrent 12 hr oxyCODONE hydrochloride 10 mg extended release oral tablet (1 source) Opioid Agonist Start: 01-11-2023 take 1 tablet by mouth twice daily, then take 1 tablet by mouth every hour Oxycodone (Oxycontin) 10 mg tablet,oral only,ext.rel.12 hr Active 10 mg PO TWICE A DAY 20 10 0 January 11, 2023 Neuropathic pain Neuralgia and neuritis, unspecified traMADol hydrochloride 50 mg oral tablet (1 source) Opioid Agonist Start: 01-11-2023 take 1 tablet by mouth every twelve hours Tramadol 50 mg tablet Active 50 mg PO Q12H January 11, 2023 12:00am Completed/Discontinued Medications Medication Drug Class(es) Dates Sig (Normalized) Sig (Original) cephalexin 750 mg oral capsule (4 sources) Cephalosporin Antibacterial Start: 03-25-2020 End: 01-11-2023 take 1 capsule by mouth twice daily Cephalexin 750 MG capsule Discontinued 750 mg PO TWICE A DAY 10 0 March 25, 2020 1:00am January 11, 2023 1:49pm Problems Problem Classification Problem Date Documented Da te Episodic/Chronic Diabetes mellitus with complications (2 sources) Type 2 diabetes mellitus with other diabetic neurological complication; Translations: [Type 2 diabetes mellitus with other specified complication] Onset: 12-25-2023 Chronic Disorders of lipid metabolism (1 source) Hyperlipidemia, unspecified; Translations: [Hyperlipidemia, unspecified] Onset: 09-17-2024 Chronic Nutritional deficiencies (1 source) Vitamin D deficiency, unspecified; Translations: [Vitamin D deficiency, unspecified] Onset: 09-17-2024 Chronic Osteoarthritis (1 source) Unilateral primary osteoarthritis, left knee; Translations: [Unilateral primary osteoarthritis, left knee] Onset: 11-11-2024 Chronic Other connective tissue disease (2 sources) Neuropathic pain; Translations: [Neuralgia and neuritis, unspecified] 01-11-2023 Episodic Other infections; including parasitic (1 source) History of herpes zoster; Translations: [Personal history of other infectious and parasitic diseases] 01-19-2023 Episodic Other nutritional; endocrine; and metabolic disorders (1 source) H/O: diabetes mellitus; Translations: [Personal history of other endocrine, nutritional and metabolic disease] 01-19-2023 Episodic Results Test Name Value Interpretation Reference Range Facility Knee 4 or More Viewson 11-05 Knee 4 or More Views [facility] [address] [place], [place] [address] Knee 4 or More Views MR#: [id number] Acct: [id number] Name: CHEO LINDQUIST Rep #: [id number] : 1945 F 79 From: Jonathan Blair MD PCP: Dr. Jonathan Pascal DO Status: REG CLI Study: Knee 4 or More Views Date of Exam: 11/05/24 Exam# [id number] Ordering Dr: Theodore Phillips MD EXAM: XR Left Knee Complete, 4 or More Views CLINICAL INDICATION: OA LEFT KNEE TECHNIQUE: Four or more views of the left knee. COMPARISON: No relevant prior studies available. FINDINGS: BONES/JOINTS: Mild tricompartmental degenerative changes. No acute fracture. No dislocation. SOFT TISSUES: Soft tissue swelling. RAD/Knee 4 or More Views IMPRESSION: Degenerative changes as above. Reading [facility] CC: Dr. Theodore Phillips MD; Dr. Jonathan Pascal DO Turbine Operator: Signed Normal [facility] Microalb:Creat Ratio,Random URon 11-21-2023 Creatinine [Mass/Vol] 18.70 mg/dL Normal NO RANGE EST. [facility] Comment on above: Performed By: #### L 502.0250 #### [facility] [address] [place], [place], [address] MALB:CRE TNP Normal <30 mg/g CRE [facility] Comment on above: Performed By: #### L 502.0250 #### [facility] [address] [place], [address] MICROALBUMIN,UR < 5.0 Normal NO RANGE EST. [facility] Comment on above: Performed By: #### L 502.0250 #### [facility] [address] [place], [address] CBC W/Diff, Automatedon 07-3 0-2023 Absolute Lymph 2.13 X10 3/uL Normal 0.83-4.51 [facility] Comment on above: Performed By: #### L 100.0100, L500.4050, L506.1000, L501.9985, L500.4100 #### [facility] [address] [place], [address] Absolute Neut 4.5 X10 3/uL Normal 2.0-7.7 [facility] Comment on above: Performed By: #### L 100.0100, L500.4050, L506.1000, L501.9985, L500.4100 #### [facility] [address] [place], [address] Basophils/100 WBC (Bld) 0.9 % Normal 0-1 [facility] Comment on above: Performed By: #### L 100.0100, L500.4050, L506.1000, L501.9985, L500.4100 #### [facility] [address] [place], [address] Eosinophils/100 WBC (Bld) 2.6 % Normal 0-5 [facility] Comment on above: Performed By: #### L 100.0100, L500.4050, L506.1000, L501.9985, L500.4100 #### [facility] [address] [place], [address] Erythrocyte distribution width (RBC) [Ratio] 12.8 % Normal 11.6-14.6 [facility] Comment on above: Performed By: #### L 100.0100, L500.4050, L506.1000, L501.9985, L500.4100 #### [facility] [address] [place], [address] Hematocrit (Bld) [Volume fraction] 40.2 % Normal 37-47 [facility] Comment on above: Performed By: #### L 100.0100, L500.4050, L506.1000, L501.9985, L500.4100 #### [facility] [address] [place], [address] Hemoglobin (Bld) [Mass/Vol] 13.1 g/dL Normal 12.0-15.0 [facility] Comment on above: Performed By: #### L 100.0100, L500.4050, L506.1000, L501.9985, L500.4100 #### [facility] [address] [place], [address] IG% 0.300 Normal 0.0-0.9 [facility] Comment on above: Result Comment: IG% - Immature Granulocytes (promyelocytes, myelocytes and metamyelocytes) > 1% indicates that a LEFT SHIFT is Present. Performed By: #### L 100.0100, L500.4050, L506.1000, L501.9985, L500.4100 #### [facility] [address] [place] [place], [address] Lymphocytes/100 WBC (Bld) 27.8 % Normal 19-41 [facility] Comment on above: Performed By: #### L 100.0100, L500.4050, L506.1000, L501.9985, L500.4100 #### [facility] [address] [place], [address] MCH (RBC) [Entitic mass] 27.5 pg Normal 27.0-32.0 [facility] Comment on above: Performed By: #### L 100.0100, L500.4050, L506.1000, L501.9985, L500.4100 #### [facility] [address] [place] [place], [address] MCHC (RBC) [Mass/Vol] 32.6 g/dL Normal 32-36 [facility] Comment on above: Performed By: #### L 100.0100, L500.4050, L506.1000, L501.9985, L500.4100 #### [facility] [address] [place] [place], [address] MCV (RBC) [Entitic vol] 84.3 fL Normal 81-99 [facility] Comment on above: Performed By: #### L 100.0100, L500.4050, L506.1000, L501.9985, L500.4100 #### [facility] [address] [place] [place], [address] Monocytes/100 WBC (Bld) 10.0 % Normal 0-10 [facility] Comment on above: Performed By: #### L 100.0100, L500.4050, L506.1000, L501.9985, L500.4100 #### [facility] [address] [place], [address] Neutrophils/100 WBC (Bld) 58.4 % Normal 47-70 [facility] Comment on above: Performed By: #### L 100.0100, L500.4050, L506.1000, L501.9985, L500.4100 #### [facility] [address] [place], [address] Nucleated RBC (Bld) [#/Vol] 0 10*3/uL Normal 0-5 [facility] Comment on above: Performed By: #### L 100.0100, L500.4050, L506.1000, L501.9985, L500.4100 #### [facility] [address] [place], [address] Platelet mean volume (Bld) [Entitic vol] 9.9 fL Normal 6.2-12.0 [facility] Comment on above: Performed By: #### L 100.0100, L500.4050, L506.1000, L501.9985, L500.4100 #### [facility] [address] [place], [address] Platelets (Bld) [#/Vol] 267 10*3/uL Normal 150-450 [facility] Comment on above: Performed By: #### L 100.0100, L500.4050, L506.1000, L501.9985, L500.4100 #### [facility] [address] [place], [address] RBC (Bld) [#/Vol] 4.77 10*6/uL Normal 4.2-5.4 [facility] Comment on above: Performed By: #### L 100.0100, L500.4050, L506.1000, L501.9985, L500.4100 #### [facility] [address] [place], [address] RDW SD 39.5 fl Normal 35.1-43.9 [facility] Comment on above: Performed By: #### L 100.0100, L500.4050, L506.1000, L501.9985, L500.4100 #### [facility] [address] [place], [address] WBC (Bld) [#/Vol] 7.7 10*3/uL Normal 4.4-11.0 [facility] Comment on above: Performed By: #### L 100.0100, L500.4050, L506.1000, L501.9985, L500.4100 #### [facility] [address] [place], [address] Comprehensive Metabolic Prof okon 11-19-2023 Albumin [Mass/Vol] 3.6 g/dL Normal 3.2-5.0 [facility] Comment on above: Performed By: #### L 100.0100, L500.4050, L506.1000, L501.9985, L500.4100 #### [facility] [address] [place], [address] Albumin/Globulin [Mass ratio] 1.1 {ratio} Normal 0.9-2.4 [facility] Comment on above: Performed By: #### L 100.0100, L500.4050, L506.1000, L501.9985, L500.4100 #### [facility] [address] [place], [address] ALK P 56 U/L Normal 45-117 [facility] Comment on above: Performed By: #### L 100.0100, L500.4050, L506.1000, L501.9985, L500.4100 #### [facility] [address] [place], [address] ALT [Catalytic activity/Vol] 25 U/L Normal 13-56 [facility] Comment on above: Performed By: #### L 100.0100, L500.4050, L506.1000, L501.9985, L500.4100 #### [facility] [address] [place], [address] AST [Catalytic activity/Vol] 16 U/L Normal 15-37 [facility] Comment on above: Performed By: #### L 100.0100, L500.4050, L506.1000, L501.9985, L500.4100 #### [facility] [address] [place], [address] Bilirubin [Mass/Vol] 0.70 mg/dL Normal 0.20-1.00 [facility] Comment on above: Result Comment: For patients on eltrombopag therapy, use of Dimension Mcrae TBIL is not recommended. Performed By: #### L 100.0100, L500.4050, L506.1000, L501.9985, L500.4100 #### [facility] [address] [place], [address] BUN/CRE 24.3 RATIO High 10-20 [facility] Comment on above: Performed By: #### L 100.0100, L500.4050, L506.1000, L501.9985, L500.4100 #### [facility] [address] [place], [address] CA,Total 10.1 mg/dL Normal 8.5-10.1 [facility] Comment on above: Performed By: #### L 100.0100, L500.4050, L506.1000, L501.9985, L500.4100 #### [facility] [address] [place], [address] Chloride [Moles/Vol] 106 mmol/L Normal 98-107 [facility] Comment on above: Performed By: #### L 100.0100, L500.4050, L506.1000, L501.9985, L500.4100 #### [facility] [address] [place], [address] CO2 [Moles/Vol] 23.0 mmol/L Normal 21.0-32.0 [facility] Comment on above: Performed By: #### L 100.0100, L500.4050, L506.1000, L501.9985, L500.4100 #### [facility] [address] [place], [address] Creatinine [Mass/Vol] 1.03 mg/dL High 0.55-1.02 [facility] Comment on above: Result Comment: The validity of the calculated GFR GFRAA in patients over 70 years has not been determined. Clinical correlation is essential. Performed By: #### L 100.0100, L500.4050, L506.1000, L501.9985, L500.4100 #### [facility] [address] [place], [address] EST GFR - AA 67 mL/min Normal >60 [facility] Comment on above: Result Comment: Afri can Tanzanian GFR Calc Performed By: #### L 100.0100, L500.4050, L506.1000, L501.9985, L500.4100 #### [facility] [address] [place], [address] GAP 9 Normal 5-15 [facility] Comment on above: Performed By: #### L 100.0100, L500.4050, L506.1000, L501.9985, L500.4100 #### [facility] [address] [place], [address] GFR/1.73 sq M.predicted among non-blacks MDRD (S/P/Bld) [Vol rate/Area] 55 mL/min/{1.73_m2} Low >60 [facility] Comment on above: Result Comment: Non- GFR Calc Performed By: #### L 100.0100, L500.4050, L506.1000, L501.9985, L500.4100 #### [facility] [address] [place], [address] Globulin (S) [Mass/Vol] 3.3 g/dL Normal 2.2-4.2 [facility] Comment on above: Performed By: #### L 100.0100, L500.4050, L506.1000, L501.9985, L500.4100 #### [facility] [address] [place], [address] Glucose [Mass/Vol] 150 mg/dL High 74-106 [facility] Comment on above: Result Comment: Fast ing Glucose result greater than or equal to 126 mg/dL suggests DIABETES MELLITUS per A.D.A. criteria. Performed By: #### L 100.0100, L500.4050, L506.1000, L501.9985, L500.4100 #### [facility] [address] [place], [address] Potassium [Moles/Vol] 4.3 mmol/L Normal 3.5-5.1 [facility] Comment on above: Performed By: #### L 100.0100, L500.4050, L506.1000, L501.9985, L500.4100 #### [facility] [address] [place], [address] Sodium [Moles/Vol] 138 mmol/L Normal 136-145 [facility] Comment on above: Performed By: #### L 100.0100, L500.4050, L506.1000, L501.9985, L500.4100 #### [facility] [address] [place], [address] T PROT 6.9 g/dL Normal 6.4-8.2 [facility] Comment on above: Performed By: #### L 100.0100, L500.4050, L506.1000, L501.9985, L500.4100 #### [facility] [address] [place], [address] Urea nitrogen [Mass/Vol] 25 mg/dL High 7-18 [facility] Comment on above: Performed By: #### L 100.0100, L500.4050, L506.1000, L501.9985, L500.4100 #### [facility] [address] [place], [address] Hemoglobin A1con 11-19-2023 HbA1c (Bld) [Mass fraction] 7.6 % High 3.8-5.6 [facility] Comment on above: Result Comment: Norm al < 5.7 % Prediabetic 5.7 - 6.4 % Diabetic >or= 6.5 % Please note range changes. Performed By: #### L 100.0100, L500.4050, L506.1000, L501.9985, L500.4100 #### [facility] [address] [place], [address] Lipid Profileon 11-19-2023 Cholesterol [Mass/Vol] 210 mg/dL High 200 [facility] Comment on above: Result Comment: <200 mg/dL Desirable 200-240 mg/dL Borderline >240 mg/dL High Risk Performed By: #### L 100.0100, L500.4050, L506.1000, L501.9985, L500.4100 #### [facility] [address] [place], [address] Cholesterol in HDL [Mass/Vol] 49 mg/dL Normal [facility] Comment on above: Result Comment: The drugs N-Acetylcysteine and Metamizole may falsely depress this assay. Reference Range HDL <40 mg/dL Low HDL Cholesterol HDL >or= 60 mg/dL High HDL Cholesterol Performed By: #### L 100.0100, L500.4050, L506.1000, L501.9985, L500.4100 #### [facility] [address] [place], [address] Cholesterol in LDL [Mass/Vol] 126 mg/dL Normal 0-130 [facility] Comment on above: Performed By: #### L 100.0100, L500.4050, L506.1000, L501.9985, L500.4100 #### [facility] [address] [place], [address] Cholesterol in VLDL [Mass/Vol] 35 mg/dL Normal 5-40 [facility] Comment on above: Performed By: #### L 100.0100, L500.4050, L506.1000, L501.9985, L500.4100 #### [facility] [address] [place], [address] Triglyceride [Mass/Vol] 173 mg/dL Normal [facility] Comment on above: Result Comment: The drugs N-Acetylcysteine and Metamizole may falsely depress this assay. Serum Triglycerides Reference Interval Normal <150 mg/dL Borderline high 150 - 199 mg/dL High 200 - 499 mg/dL Very High > or = 500 mg/dL Performed By: #### L 100.0100, L500.4050, L506.1000, L501.9985, L500.4100 #### [facility] [address] [place], [address] Vitamin D,25 Hydroxyon 11-18 Vitamin D 25-OH 78.4 ng/mL Normal [facility] Comment on above: Result Comment: Leti min D 25(OH) Status Range Deficiency <20 ng/mL (50nmol/L) Insufficiency 20 - 30 ng/mL (50 - 75 nmol/L) Sufficiency 30 - 100 ng/mL (75 - 250 nmol/L) Toxicity >100 ng/mL (>250 nmol/L) Performed By: #### L 100.0100, L500.4050, L506.1000, L501.9985, L500.4100 #### [facility] [address] [place], [address] Bilirubin Test strip Ql (U)O rdered By: Jonathan Pascal on 11-15-2022 Bilirubin Ql (U) Negative Negative [facility] Ketones Test strip Ql (U)Ord ered By: Jonathan Pascal on 11-15-2022 Ketones Ql (U) Negative Negative [facility] Nitrite Test strip Ql (U)Ord ered By: Jonathan Pascal on 11-15-2022 Nitrite Ql (U) Negative Negative [facility] No Panel InformationOrdered By: Jonathan Pascal on 11-15-2022 Urine Microalbumin/Creatinine Ratio 8.9 mg/g CRE <30 [facility] Protein Test strip Ql (U)Ord ered By: Jonathan Pascal on 11-15-2022 Protein Ql (U) Negative Negative [facility] Thin prep Papanicolaou smear with manual screeningOrdered By: Jonathan Pascal on 11-15-2022 Thin prep Papanicolaou smear with manual screening 5.0 mg/L NO RANGE EST. [facility] Urine blood detectionOrdered By: Jonathan Pascal on 11-15-2022 RBC Ql (U) Negative Negative [facility] Urine clarityOrdered By: Richelle Pascal on 11-15-2022 Clarity (U) Clear Clear [facility] Urine color determinationOrd ered By: Jonathan Pascal on 11-15-2022 Color (U) Yellow Yellow [facility] Urine creatinine measurement (mass/volume)Ordered By: Jonathan Pascal on 11-15-2022 Creatinine (U) [Mass/Vol] 56.60 mg/dL NO RANGE EST. [facility] Urine glucose detectionOrder ed By: Jonathan Pascal on 11-15-2022 Glucose Ql (U) Normal mg/dl Normal [facility] Urine leukocyte esterase det ection by dipstickOrdered By: Jonathan Pascal on 11-15-2022 Leukocyte esterase Test strip Ql (U) Negative Negative [facility] Urine pHOrdered By: Jonathan richter on 11-15-2022 pH (U) 6.0 [pH] 5.0 - 8.0 [facility] Urine specific gravity measu rementOrdered By: Jonathan Pascal on 11-15-2022 Specific gravity (U) [Rel density] 1.015 1.002-1.030 [facility] Urobilinogen Auto test strip Ql (U)Ordered By: Jonathan Pascal on 11-15-2022 Urobilinogen Ql (U) Normal mg/dl Normal [facility] Absolute lymphocyte countOrd ered By: Jonathan Pascal on 11-13-2022 Lymphocytes Auto (Unsp spec) [#/Vol] 1.55 10*3/uL 0.83-4.51 [facility] Basophil percentageOrdered B y: Jonathan Pascal on 11-13-2022 Basophils/100 WBC (Bld) 0.7 % 0-1 [facility] Bilirubin [Mass/Vol] 0.70 mg/dL 0.20-1.00 [facility] Comment on above: For patients on eltr ombopag therapy, use of Dimension Mcrae TBIL is not recommended. Chloride [Moles/Vol] 110 mmol/L 98-107 [facility] Cholesterol [Mass/Vol] 212 mg/dL <200 [facility] Comment on above: <200 mg/dL Desirable 200-240 mg/dL Borderline >240 mg/dL High Risk Eosinophils/100 WBC (Bld) 2.2 % 0-5 [facility] Glucose [Mass/Vol] 201 mg/dL 74-106 [facility] Comment on above: Glucose result great er than or equal to 200 mg/dLsuggests DIABETES MELLITUS per A.D.A. criteria. Neutrophils (Bld) [#/Vol] 3.7 10*3/uL 2.0-7.7 [facility] Neutrophils/100 WBC (Bld) 61.4 % 47-70 [facility] Potassium [Moles/Vol] 4.7 mmol/L 3.5-5.1 [facility] Protein [Mass/Vol] 6.8 g/dL 6.4-8.2 [facility] Sodium [Moles/Vol] 141 mmol/L 136-145 [facility] Triglyceride [Mass/Vol] 191 mg/dL <199 [facility] Comment on above: The drugs N-Acetylcy steine and Metamizole may falsely depress this assay.Serum Triglycerides Reference Interval Normal <150 mg/dL Borderline high 150 - 199 mg/dL High 200 - 499 mg/dL Very High > or = 500 mg/dL WBC (Bld) [#/Vol] 6.0 10*3/uL 4.4-11.0 [facility] Blood erythrocytes count (nu mber/volume)Ordered By: Jonathan Pascal on 11-13-2022 RBC (Bld) [#/Vol] 4.85 10*6/uL 4.2-5.4 [facility] Blood hemoglobin measurement (mass/volume)Ordered By: Jonathan Pascal on 11-13-2022 Hemoglobin (Bld) [Mass/Vol] 13.5 g/dL 12.0-15.0 [facility] Blood lymphocytes/100 leukoc ytesOrdered By: Jonathan Pascal on 11-13-2022 Lymphocytes/100 WBC (Bld) 26.0 % 19-41 [facility] Blood monocytes/100 leukocyt esOrdered By: Jonathan Pascal on 11-13-2022 Monocytes/100 WBC (Bld) 9.4 % 0-10 [facility] Blood platelet mean volumeOr dered By: Jonathan Pascal on 11-13-2022 Platelet mean volume (Bld) [Entitic vol] 10.4 fL 6.2-12.0 [facility] Determination of erythrocyte mean corpuscular volume (MCV)Ordered By: Jonathan Pascal on 11-13-2022 MCV (RBC) [Entitic vol] 89.1 fL 81-99 [facility] Hematocrit Auto (Bld) [Volum e fraction]Ordered By: Jonathan Pascal on 11-13-2022 Hematocrit (Bld) [Volume fraction] 43.2 % 37-47 [facility] - Chemistry and C hemistry - challengeOrdered By: Jonathan Pascal on 11-13-2022 ALP [Catalytic activity/Vol] 63 U/L 45-117 [facility] ALT [Catalytic activity/Vol] 26 U/L 13-56 [facility] CO2 [Moles/Vol] 28.0 mmol/L 21.0-32.0 [facility] Cobalamin (Vitamin B12) [Mass/Vol] 621 pg/mL 211-911 [facility] Globulin (S) [Mass/Vol] 3.5 g/dL 2.2-4.2 [facility] Urea nitrogen/Creatinine [Mass ratio] 18.7 mg/mg 10-20 [facility] Laboratory - Hematology and Cell countsOrdered By: Jonathan Pascal on 11-13-2022 Erythrocyte distribution width (RBC) [Entitic vol] 42.1 fL 35.1-43.9 [facility] Erythrocyte distribution width (RBC) [Ratio] 12.8 % 11.6-14.6 [facility] Immature granulocytes/100 WBC (Bld) 0.300 % 0.0-0.9 [facility] Comment on above: IG% - Immature Granu locytes (promyelocytes, myelocytes and metamyelocytes) > 1% indicates that a LEFT SHIFT is Present. MCH (RBC) [Entitic mass] 27.8 pg 27.0-32.0 [facility] Nucleated RBC/100 WBC (Bld) [Ratio] 0 % 0-5 [facility] MCHC Auto (RBC) [Mass/Vol]Or dered By: Jonathan Pascal on 11-13-2022 MCHC (RBC) [Mass/Vol] 31.3 g/dL 32-36 [facility] No Panel InformationOrdered By: Jonathan Pascal on 11-13-2022 Estimated GFR (MDRD) Amer 83 mL/min >60 [facility] Comment on above: GFR Calc Estimated GFR (MDRD) Non-Af Amer 68 mL/min >60 [facility] Comment on above: Non- GFR Calc Miscellaneous Test See comment [facility] Comment on above: TEST RESULTS LIMITSI mi 113 ug/dL 38 - 169 TESTING PERFORMED AT [facility]. ORIGINAL REPORT ON FILE IN LAB CONTAINS ADDITIONAL TEST SITE INFORMATION. Thyroid Stimulating Hormone (TSH) 1.30 uIU/mL 0.358-3.74 [facility] Vitamin D 25-Hydroxy 70.1 ng/mL [facility] Comment on above: Vitamin D 25(OH) Sta tus Range Deficiency <20 ng/mL (50nmol/L) Insufficiency 20 - 30 ng/mL (50 - 75 nmol/L) Sufficiency 30 - 100 ng/mL (75 - 250 nmol/L) Toxicity >100 ng/mL (>250 nmol/L) Platelets bldOrdered By: Richelle Pascal on 11-13-2022 Platelets (Bld) [#/Vol] 214 10*3/uL 150-450 [facility] Serum or plasma albumin mattie urement (mass/volume)Ordered By: Jonathan Pascal on 11-13-2022 Albumin [Mass/Vol] 3.3 g/dL 3.2-5.0 [facility] Serum or plasma albumin/glob ulin mass ratioOrdered By: Jonathan Pascal on 11-13-2022 Albumin/Globulin [Mass ratio] 0.9 {ratio} 0.9-2.4 [facility] Serum or plasma calcium mattie urement (mass/volume)Ordered By: Jonathan Pascal on 11-13-2022 Calcium [Mass/Vol] 9.8 mg/dL 8.5-10.1 [facility] Serum or plasma cholesterol in HDL measurement (mass/volume)Ordered By: Jonathan Pascal on 11-13-2022 Cholesterol in HDL [Mass/Vol] 48 mg/dL >40 [facility] Comment on above: The drugs N-Acetylcy steine and Metamizole may falsely depress this assay. Reference Range HDL <40 mg/dL Low HDL Cholesterol HDL >or= 60 mg/dL High HDL Cholesterol Serum or plasma cholesterol in VLDL measurement (mass/volume)Ordered By: Jonathan Pascal on 11-13-2022 Cholesterol in VLDL [Mass/Vol] 38 mg/dL 5-40 [facility] Serum or plasma creatinine m easurement (mass/volume)Ordered By: Jonathan Pascal on 11-13-2022 Creatinine [Mass/Vol] 0.86 mg/dL 0.55-1.02 [facility] Comment on above: The validity of the calculated GFR & GFRAA in patients over 70 years has not been determined. Clinical correlation is essential. Serum or plasma ferritin sigifredo surement (mass/volume)Ordered By: Jonathan Pascal on 11-13-2022 Ferritin [Mass/Vol] 349 ng/mL 8-252 [facility] Serum or plasma low density lipoprotein (LDL) cholesterol measurement (mass/volume)Ordered By: Jonathan Pascal on 11-13-2022 Cholesterol in LDL [Mass/Vol] 126 mg/dL 0-130 [facility] Serum or plasma urea nitroge n measurement (mass/volume)Ordered By: Jonathan Pascal on 11-13-2022 Urea nitrogen [Mass/Vol] 16 mg/dL 7-18 [facility] Thin prep Papanicolaou smear with manual screeningOrdered By: Jonathan Pascal on 11-13-2022 Thin prep Papanicolaou smear with manual screening 19 U/L 15-37 [facility] Thin prep Papanicolaou smear with manual screening 3 5-15 [facility] Encounters Encounter Date Encounter Type Care Provider Facility Start: 11-05-2024 End: 11-05-[address] Jonathan Pascal DO Work Phone: -[facility] [place] Start: 11-05-2024 End: 11-05-[address] Theodore Phillips MD -[facility] [place] Work Phone: Start: 11-05-2024 End: 11-05-2024 ambulatory Jonathan Naida Facility:[facility] Start: 09-18-2024 ambulatory Jonathan Naida Facility: [facility] Start: 11-21-2023 End: 11-21-2023 [facility] Start: 11-19-2023 End: 11-19-2023 ambulatory [facility] Facility:[facility] Start: 01-07-2023 End: 01-07-[address] [facility] Work Phone: Start: 01-07-2023 End: 01-07-[address] [facility]Out[facility] Work Phone: Start: 11-15-2022 End: 11-15-[address] [facility] Work Phone: Start: 11-15-2022 End: 11-15-[address] [facility]-Laboratory, Specimen Work Phone: Start: 11-13-2022 End: 11-13-[address] [facility] Work Phone: Start: 11-13-2022 End: 11-13-[address] [facility], Dao Mandel [facility] Procedures Date Procedure Procedure Detail Performing Clinician Start: 11-05-2024 X-ray of knee, four or more views Dr. Jonathan Pascal DO Work Phone: Start: 01-07-2023 Screening mammography Immunizations Immunization Date Immunization Notes Care Provider Fa [facility] 03-25-2020 tetanus toxoid, redu pk diphtheria toxoid, and acellular pertussis vaccine, adsorbed [facility] Payers Date Payer Category Payer Private Health Insurance [id number] 2023 Self-pay [id number] 2014 Medicare [id number] Unknown [id number] Unknown [id number] Unknown [id number] Unknown [id number] Social History Date Type Detail Facility Start: 03-25-2020 Tobacco smoking stat [facility] Unknown if ever smoked [facility] Start: 03-25-2020 Non-smoker [facility] Start: 1945 Sex Assigned At Female [facility] Start: [facility]11-2023 [facility] Radiology Diagnostic study note 11-05-2024 Note Date & Type Note Facility 11-05-2024 Radiology Diagnostic study note [facility] [address], [place] [address] Knee 4 or More Views MR#: [id number] Acct: [id number] Name: CHEO LINDQUIST Rep #: [id number] : 1945 F 79 From: Richelle Blair MD PCP: Dr. Jonathan Pascal, DO Status: REG CLI Study:Knee 4 or More Views Date of Exam: 11/05/24 Exam# [id number] Ordering Dr: Theodore Phillips MD EXAM: XR Left Knee Complete, 4 or More Views CLINICAL INDICATION: OA LEFT KNEE TECHNIQUE: Four or more views of the left knee. COMPARISON: No relevant prior studies available. FINDINGS: BONES/JOINTS: Mild tricompartmental degenerative changes. No acute fracture. No dislocation. SOFT TISSUES: Soft tissue swelling. RAD/Knee 4 or More Views IMPRESSION: Degenerative changes as above. Reading [facility] CC: Dr. Theodore Phillips MD; Dr. 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 Evaluation note Note Date & Type Note Facility Evaluation note No assessment information availa ble [facility] Work Phone: Reason for referral (narrative) Note Date & Type Note Facility Reason for referral (narrative) No reason for referral information available [facility] Work Phone: Advance Directives No Advanced Directives Records Found Advance Directive Response Recorded Date/ Time Living Will Yes March 25 4:33pm Power of Foreman/Project Manager Yes March 25, 2020 4:33pm Chief Complaint and Reason for Visit Chief Complaint SCREENING Chief Complaint Admit Date RIGHT KNEE PAIN November 05, 2024 10:0 4am Summary Purpose Family History No Family History Records Found Additional Source Comments Care Teams (unrecognized sec tion and content) Team Status: Active Member Role Status Dates Dr. Neo Lopez MD Family Provider Active Dr. Jonathan Pascal DO Primary Care Provider Active Team Status: Active Member Role Status Dates Dr. Jonathan Pascal DO Primary Care Prov ider, Attending Provider, Referring Provider Active Team Status: Inactive Member Role Status Dates Dr. oJnathan Pascal DO Primary Care Prov ider, Attending Provider, Referring Provider Active Team Status: Active Member Role/Relationship Status Dates Dr. Neo Lopez MD Family Provider Active Dr. Jonathan Pascal DO Primary Care Provider Active Team Status: Inactive Member Role/Relationship Status Dates Dr. Jonathan Pascal DO Primary Care Provider Active Start: November 05, 2024 End: November 05, 2024 Dr. Theodore Phillips MD Attending Provider Active Start: November 05, 2024 End: November 05, 2024 Dr. Theodore Phillips MD Referring Provider Active Start: November 05, 2024 End: November 05, 2024 Goals (unrecognized section and content) Goals may be documented in a n alternate sectionGoals may be documented in an alternate sectionGoals may be documented in an alternate sectionGoals may be documented in an alternate section INFORMATION SOURCE (unrecogn ized section and content) DATE CREATED AUTHOR 11/12/2024 [facility] FOR RECORDS PERTAINING TO PATIENTS WHO ARE OR HAVE BEEN ENROLLED IN A CHEMICAL DEPENDENCY/SUBSTANCEABUSE PROGRAM, SOME INFORMATION MAY BE OMITTED. This clinical summary was aggregated from multiple sources. Caution should be exercised in using it in the provision of clinical care. This summary normalizes information from multiple sources, and as a consequence, information in this document may materially change the coding, format and clinical context of patient data. In addition, data may be omitted in some cases. CLINICAL DECISIONS SHOULD BE BASED ON THE PRIMARY CLINICAL RECORDS. [employer] provides no warranty or guarantee of the accuracy or completeness of information in this document.
== END | disposition home or self-care (01) ==
LOC: BFHLAB 14:07
PROVIDERS: PCP Family Medicine; Visit Provider Family Medicine
DX: E11.49 Type 2 diabetes mellitus with other diabetic neurological complication (principal); E78.5 Hyperlipidemia, unspecified; E55.9 Vitamin D deficiency, unspecified
CPT/HCPCS: 36415; 80053; 80061; 82043; 82306; 82570; 84443; 85025

== ENCOUNTER 2025-04-13 12:56 | Outpatient (RCR) | payer MEDICARE, OTHER, SELFPAY | END 2025-04-21 23:59 | LOC: NS 12:56 | PROVIDERS: PCP Family Medicine; Referring Provider Family Medicine; Visit Provider Family Medicine | DX: Z71.3 Dietary counseling and surveillance (principal); E11.49 Type 2 diabetes mellitus with other diabetic neurological complication | CPT/HCPCS: 97802 ==